=== PATIENT | female | born 2000 | race Caucasian/White ===

== ENCOUNTER → 2020-09-05 09:29 | Outpatient (CLI) | payer OTHER, SELFPAY ==
[2020-09-05 09:46] LABS: Bacteria Urine None Seen; RBC Urine None Seen (0-5/HPF); WBC Urine None Seen (0-5/HPF)
[2020-09-05 10:29] LABS: Hematocrit 34.3 % (36-46); Hemoglobin 11.1 g/dL (12.0-16.0); Mean Corpuscular HGB Conc 32.4 % (30-36); Mean Corpuscular Hemoglobin 26.3 PG (26-34); Mean Corpuscular Volume 81.2 fL (80-100); Platelet Count 356 X10^3/uL (150-400); Red Blood Cell Count 4.23 X10^6/uL (4.0-5.2); Red Cell Distribution Width 16.4 % (11.6-14.8); White Blood Cell Count 5.7 X10^3/uL (4.5-11.0)
[2020-09-05 10:36] LABS: Appearance Urine UA CLEAR; Bilirubin Urine UA NEGATIVE (NEGATIVE); Color Urine UA YELLOW; Glucose Urine UA NEGATIVE (Negative); Ketones Urine UA NEGATIVE (NEGATIVE); Leukocyte Esterase Urine UA NEGATIVE (NEGATIVE); Nitrite Urine UA NEGATIVE (Negative); Occult Blood Urine UA TRACE-LYSED (Negative); Protein Urine UA NEGATIVE (Negative); Specific Gravity Urine UA 1.025 (1.000-1.035); Urobilinogen Urine UA 0.2 E.U./dL (0.2)
[2020-09-05 10:37] LABS: pH Urine UA 6.5 (4.5-8.0)
[2020-09-05 10:42] LABS: Alanine Aminotransferase 16 IU/L (<35); Albumin 4.6 g/dL (3.5-5.0); Albumin Globulin Ratio 1.4 (1.0-2.8); Alkaline Phosphatase 62 U/L (38-126); Aspartate Aminotransferase 26 IU/L (14-36); BUN Creatinine Ratio 25.7 (6-22); Bilirubin Total 0.5 mg/dL (0.2-1.3); Blood Urea Nitrogen 18 mg/dL (7-17); Calcium 9.6 mg/dL (8.4-10.2); Carbon Dioxide 23 mmol/L (22-32); Chloride 106 mmol/L (98-107); Estimated Glomerular Filt Rate > 60.0 mL/min (>60); Globulin 3.2 g/dL (1.7-4.1); Glucose 94 mg/dL (70-100); HEMOLYSIS < 15 (0-50); Lipase 252 U/L (23-300); Potassium 4.3 mmol/L (3.4-5.1); Sodium 138 mmol/L (137-145); Total Protein 7.8 g/dL (6.3-8.2)
[2020-09-05 10:43] LABS: Culture Indicated Urine Cult Not Indicated; Urine Comments Microscopic Normal
[2020-09-05 11:28] LABS: TSH w/ Reflex to FT4 1.65 uIU/mL (0.47-4.68)
[2020-09-06 16:07] LABS: Deamidated Gliadin Ab IgA 5 units (0-19); Deamidated Gliadin Ab IgG 5 units (0-19); Immunoglobulin A,Qn 172 mg/dL (87-352); t-Transglutaminase IgA <2 U/mL (0-3)
[2020-09-20 13:36] LABS: H. Pylori Antigen Stool Negative (Negative)
== END ==
PROVIDERS: Family Provider Pediatrics; Referring Provider Registered Nurse Diabetes Educator; Visit Provider Registered Nurse Diabetes Educator
DX: K58.9 Irritable bowel syndrome, unspecified (principal); R10.9 Unspecified abdominal pain; R19.4 Change in bowel habit
CPT/HCPCS: 36415; 80053; 81001; 82784; 83516; 83690; 84443; 85027; 87338

== ENCOUNTER → 2021-06-22 18:17 | Outpatient (CLI) | payer OTHER, SELFPAY | PROVIDERS: Family Provider Pediatrics; PCP Registered Nurse Diabetes Educator; Visit Provider Nurse Practitioner Family | DX: R30.0 Dysuria (principal) | CPT/HCPCS: 87086; 87210 ==

== ENCOUNTER → 2023-07-06 12:23 | Outpatient (CLI) | payer OTHER, SELFPAY ==
[2023-07-06 14:02] LABS: Urine N gonorrhoeae NOT DETECTED
[2023-07-06 14:23] LABS: Urine Chlamydia NOT DETECTED
== END ==
PROVIDERS: Family Provider Pediatrics; PCP Registered Nurse Diabetes Educator; Visit Provider Physician Assistant
DX: Z11.3 Encounter for screening for infections with a predominantly sexual mode of transmission (principal)
CPT/HCPCS: 87491; 87591

== ENCOUNTER → 2023-07-06 12:57 | Outpatient (CLI) | payer OTHER, SELFPAY ==
[2023-07-06 16:31] LABS: Hepatitis B Surface Antigen NEGATIVE s/c (NEGATIVE)
[2023-07-06 16:51] LABS: HIV 1 & 2 Ab/Ag 4th Gen Combo NEGATIVE (NEGATIVE); Hep C Virus Ab w/Reflex Quant NEGATIVE s/c (NEGATIVE)
[2023-07-07 05:13] LABS: RPR Screen Non Reactive (Non Reactive)
== END ==
LOC: LAB 12:58
PROVIDERS: Family Provider Pediatrics; PCP Registered Nurse Diabetes Educator; Referring Provider Physician Assistant; Visit Provider Physician Assistant
DX: Z11.3 Encounter for screening for infections with a predominantly sexual mode of transmission (principal)
CPT/HCPCS: 36415; 86592; 86803; 87340; 87389; 87491; 87591

== ENCOUNTER → 2023-08-26 15:27 | Outpatient (CLI) | payer OTHER, SELFPAY ==
[2023-08-26 17:23] LABS: Add Manual Diff / Slide Review NO; Basophils Absolute Auto 0 /uL (0-100); Basophils Percent Auto 0.6 % (0-2); Eosinophils Absolute Auto 100 /uL (0-450); Eosinophils Percent Auto 1.1 % (2-4); Hemoglobin 12.6 g/dL (12.0-16.0); Lymphocytes Absolute Auto 1800 /uL (1100-4500); Lymphocytes Percent Auto 23.2 % (25-40); Mean Corpuscular Hemoglobin 29.1 PG (26-34); Mean Corpuscular Volume 85.7 fL (80-100); Monocytes Absolute Auto 700 /uL (0-900); Monocytes Percent Auto 8.3 % (3-14); Neutrophils Absolute Auto 5300 /uL (1500-7000); Neutrophils Percent Auto 66.8 % (50-75); Platelet Count 382 X10^3/uL (150-400); Red Blood Cell Count 4.32 X10^6/uL (4.0-5.2); Red Cell Distribution Width 15.1 % (11.6-14.8); White Blood Cell Count 7.9 X10^3/uL (4.5-11.0)
[2023-08-26 17:47] LABS: Alanine Aminotransferase 20 IU/L (<35); Albumin 4.5 g/dL (3.5-5.0); Albumin Globulin Ratio 1.2 (1.0-2.8); Alkaline Phosphatase 75 U/L (38-126); Aspartate Aminotransferase 30 IU/L (14-36); BUN Creatinine Ratio 24.4 (6-22); Bilirubin Total 0.8 mg/dL (0.2-1.3); Blood Urea Nitrogen 22 mg/dL (7-17); Calcium 9.9 mg/dL (8.4-10.2); Carbon Dioxide 29 mmol/L (22-32); Chloride 103 mmol/L (98-107); Estimated Glomerular Filt Rate > 60 mL/min (>60); Globulin 3.7 g/dL (1.7-4.1); Glucose 92 mg/dL (70-100); HEMOLYSIS < 15 (0-50); Lipase 123 U/L (23-300); Potassium 3.6 mmol/L (3.4-5.1); Sodium 138 mmol/L (137-145); Total Protein 8.2 g/dL (6.3-8.2)
[2023-08-26 18:13] LABS: TSH w/ Reflex to FT4 0.72 uIU/mL (0.47-4.68)
== END ==
PROVIDERS: Family Provider Pediatrics; PCP Registered Nurse Diabetes Educator; Referring Provider Physician Assistant; Visit Provider Physician Assistant
DX: K21.9 Gastro-esophageal reflux disease without esophagitis (principal)
CPT/HCPCS: 36415; 80053; 83690; 84443; 85025

== ENCOUNTER → 2023-12-31 08:41 | Outpatient (CLI) | payer OTHER, SELFPAY ==
--- NOTE | 2023-12-31 08:42 | DI.RAD.S_ITS ---
PROCEDURE: XR LUMBAR SPINE MIN 4V INDICATIONS: LBP TECHNIQUE: Five views of the lumbar spine, including flexion and extension lateral images. COMPARISON: None. FINDINGS: Bones: 5 nonrib-bearing vertebrae are present. Minimal dextroscoliosis in the thoracolumbar spine.. No vertebral body compression fractures. No suspicious bony lesions. Soft tissues: Overlying bowel gas pattern is normal. No suspicious soft tissue calcifications. Flexion/extension: There is normal range of motion, with preserved normal alignment. IMPRESSION: No acute bony abnormality. Dictated by: Joaquin Quiroz M.D. on 12/31/2023 at 9:08 Approved by: Joaquin Quiroz M.D. on 12/31/2023 at 9:11
--- NOTE | 2023-12-31 08:42 | DI.RAD.S_ITS ---
PROCEDURE: XR THORACIC SPINE 3V INDICATIONS: LBP, thoracic pain TECHNIQUE: For views of the thoracic spine were acquired. COMPARISON: None. FINDINGS: Bones: No fractures or dislocations. No suspicious bony lesions. Twelve pairs of ribs are noted, and appear intact where visualized. Soft tissues: No paravertebral stripe thickening. IMPRESSION: No acute bone abnormality. Dictated by: Joaquin Quiroz M.D. on 12/31/2023 at 9:05 Approved by: Joaquin Quiroz M.D. on 12/31/2023 at 9:07
== END ==
PROVIDERS: Family Provider Pediatrics; PCP Registered Nurse Diabetes Educator; Referring Provider Physician Assistant Surgical; Visit Provider Physician Assistant Surgical
DX: M54.50 Low back pain, unspecified (principal); M54.6 Pain in thoracic spine
CPT/HCPCS: 72074; 72110

== ENCOUNTER → 2024-01-18 15:31 | Outpatient (CLI) | payer OTHER, SELFPAY ==
--- NOTE | 2024-01-18 15:31 | DI.MRI.S_ITS ---
PROCEDURE: MR LUMBAR SPINE WO CON INDICATIONS: Strain of muscle, fascia and tendon of lower back TECHNIQUE: Noncontrast sagittal T1 spin echo and T2 fast echo, sagittal STIR, and T2 fast spin echo through the lumbar spine. In cases with scoliosis, additional coronal T2 fast spin echo may be performed. COMPARISON: None. FINDINGS: Image quality: Excellent. Alignment and Curvature: There is straightening of lumbar lordosis. Bone Marrow: Marrow is of normal overall signal. No acute vertebral body compression fractures. Spinal Cord: Conus medullaris terminates at the L1 level. Visualized cord demonstrates normal signal and size. Paraspinous Soft Tissues: There is a 8.8 x 5.1 cm bilobed T1 hyperintense and T2 hypointense mass within the pelvis. T12-L1: Normal appearance. L1-L2: Normal appearance. L2-L3: Normal appearance. L3-L4: Normal appearance. L4-L5: Normal appearance. L5-S1: Normal appearance. IMPRESSION: 1. No spinal canal stenosis or foraminal stenosis. 2. There is straightening of lumbar lordosis. This finding can be seen in patients with muscle spasms. 3. There is an 8.8 x 5.1 cm bilobed mass within the pelvis felt to correspond to an endometrioma. Differential diagnosis includes a large ovarian hemorrhagic cyst. A dedicated pelvic MRI or ultrasound can be performed for further characterization if clinically indicated. Dictated by: Kojo Vides M.D. on 01/19/2024 at 7:43 Approved by: Kojo Vides M.D. on 01/19/2024 at 8:01
== END ==
PROVIDERS: Family Provider Pediatrics; PCP Registered Nurse Diabetes Educator; Referring Provider Specialist; Visit Provider Specialist
DX: S39.012A Strain of muscle, fascia and tendon of lower back, initial encounter (principal); R19.00 Intra-abdominal and pelvic swelling, mass and lump, unspecified site; X58.XXXA Exposure to other specified factors, initial encounter
CPT/HCPCS: 72148

== ENCOUNTER → 2024-02-02 14:14 | Outpatient (CLI) | payer OTHER, SELFPAY ==
--- NOTE | 2024-02-02 14:15 | DI.US.S_ITS ---
PROCEDURE: US PELVIC COMPLETE INDICATIONS: evaluate pelvic mass seen on MRI TECHNIQUE: Real-time scanning was performed of the pelvic organs, with image documentation. Additional endovaginal scanning was necessary due to incomplete visualization of the adnexal and endometrial structures by transabdominal scanning. COMPARISON: [facility], MR, MR LUMBAR SPINE WO CON, 01/18/2024, 15:37. FINDINGS: Uterus: Uterus is anteverted and normal in size at 8.6 x 3.3 x 4.8 cm. The myometrium is homogeneous. The endometrium measures 14.5 mm combined thickness. Ovaries: Left ovary measures 3.3 x 2.6 x 4.3 cm , 19.6 cc. 2.2 cm simple cyst. Right adnexa shows a multiple complex cystic structures appearing sizes, largest measures 5.8 cm, and the collection overall measures 9.6 x 5.3 x 7.2 cm. Other: No pathologic free abdominal or pelvic fluid. IMPRESSION: Multiple right adnexal hemorrhagic cystic structures can be further evaluated with a dedicated MRI pelvis with contrast Approved by: Sky Wray M.D. on 02/04/2024 at 17:32
== END ==
PROVIDERS: Family Provider Pediatrics; PCP Registered Nurse Diabetes Educator; Referring Provider Student in an Organized Health Care Education/Training Program; Visit Provider Student in an Organized Health Care Education/Training Program
DX: R19.00 Intra-abdominal and pelvic swelling, mass and lump, unspecified site (principal); N83.201 Unspecified ovarian cyst, right side
CPT/HCPCS: 76856

== ENCOUNTER 2024-03-03 09:45 | Day surgery (SDC) | payer OTHER, SELFPAY ==
[2024-03-02 09:20] VITALS: BMI 19.8
--- NOTE | 2024-03-03 | PATH_ITS ---
[facility] Accession Number: [id number] No. of containers..01 Tissue . 01 Material submitted: . ovary - RIGHT OVARIAN CYST . 01 Diagnosis: RIGHT OVARIAN CYST, EXCISION: Endometriotic cyst (endometrioma). Benign cystic follicle. No evidence of malignancy identified. MRV 03/09/2024 1241 Local . 01 Comment: As part of ongoing quality control operator, selected slides from this case have also been reviewed by Dr. Charlie Colon, who agrees with the interpretation. . 01 Electronically signed: . Rose Marie Perez MD, Pathologist NPI- [id number] . 01 Gross description: . Received in formalin with two patient identifiers and right ovarian cyst, are multiple fragments of ogden, membranous soft tissue aggregating to 6.1 x 4.4 x 2.1 cm. The membranous tissue averages 0.2 cm thick with no distinct thickening or excrescences identified. Some possible, yellow-orange ovarian parenchyma is identified and distorted. [employer] sections are submitted in A1-A3. ([id number]) . The remainig specimen is submitted in A4-A15. ([id number]) /MRV 03/09/2024 0505 Local . 01 Pathologist provided ICD-10: N80.101 . 01 CPT . 758322 Specimen Comment: A courtesy copy of this report has been sent to [facility] Performed at: [address] [address], [place], [place] [id number] MD Erick Knox MD Phone: [phone]
[2024-03-03] MEDS: ACETAMINOPHEN 325 MG TABLET 975 MG PO (10:19)
[2024-03-03] MEDS: LACTATED RINGERS 1,000 ML 42 ML IV ×2 (10:19→11:44)
[2024-03-03] MEDS: SCOPOLAMINE 1 PATCH TOP (10:24)
[2024-03-03 10:33] VITALS: BP 126/85; PULSE 101; RESP 17; TEMP 37.3; O2SAT 99; BMI 20.5
--- NOTE | 2024-03-03 10:54 | PM.PREOP ---
Pre-operative Note Interval Note History & Physical reviewed/Exam performed by Physician: Yes Changes to H&P: No H&P completed within 30 days and has changed as indicated here:: see H&P from 02/26/24
--- NOTE | 2024-03-03 11:35 | SUR.OPER ---
Lithotomy on padded OR bed, head on pillow, arms secured on padded arm boards at <90 degrees abduction. Legs secured in padded yellow fins stirrups.
[2024-03-03] MEDS: BUPIVACAINE 0.25% (PF) VIAL 30 ML INJ (11:43)
[2024-03-03] MEDS: ROPIVACAINE 0.5% PF 5 MG/ML 20ML VIAL 5 ML INTRA-ARTI (12:53)
[2024-03-03 13:18] VITALS: BP 111/65; PULSE 101; RESP 16; TEMP 36.3; O2SAT 99
--- NOTE | 2024-03-03 13:22 | P.OP_ITS ---
Operative Date/Time/Diagnoses Date of procedure: 03/03/24 Time of procedure: 11:15 Pre-op diagnosis: 1. Adnexal cyst 2. Dysmenorrhea Post-op diagnosis: other (1. Pelvic endometriosis, stage IV 2. Right ovarian endometriomas) Procedure & Clinicians Procedure: Diagnostic laparoscopy Right ovarian cystectomy Lysis of adhesions Same procedure as scheduled: Yes Indications: 23yo F with history of dysmenorrhea, with incidentally found pelvic mass on imaging. Given the size, characteristics, and her symptoms, recommended laparoscopic removal. Surgeon: Stacy Longoria Stripping Shovel Operator: Thomas Lucero Anesthesia Type: General Operative Notes Findings: Extensive pelvic endometriosis involving the pelvic peritoneum, anterior and posterior cul-de-sacs, bilateral ovarian fossae, right ovarian endometriomas, and endometrial implants noted on the bowel. Normal appearing uterus, bilateral fallopian tubes, and left ovary. Normal appearing liver edge and gallbladder. Specimen(s): other (right ovarian cyst) Estimated Blood Loss (mL): 50 Blood products transfused: none Procedure in detail: The risks, benefits, indications and alternatives of the procedure were reviewed with the patient and informed consent was obtained. The pt was taken to the operating room where general anesthesia was obtained without difficulty. The pt was then placed in the low lithotomy position using gel-padded Sina Stirrups. Sequential compression devices were placed bilaterally for VTE prophylaxis. Pt was then prepped and draped in the usual sterile fashion. A Hodgson catheter was placed without difficulty. A sponge stick was placed in the vagina as a means to manipulate the uterus. Attention was then turned to the patient?s abdomen where a 5mm skin incision was made in the inferior aspect of the umbilicus after injection of 0.25% marcaine. A 5mm trocar and sleeve were then carefully introduced into the peritoneal cavity under direct visualization at a 90-degree angle while tenting up the abdominal wall. Intra-peritoneal placement was confirmed under direct visualization with the laparoscope with entry pressure <5mmHg. A pneumoperitoneum was obtained with several liters of CO2 gas, maximum pressure of 15mmHg. Upon entry into the peritoneal cavity, structures immediately below the incision were inspected and found to be free of injury. Two additional 5mm trocars were placed in the left and right lateral aspect of the abdominal wall under direct laparoscopic visualization after injection of 0.25% marcaine at each site. A survey of the pt?s abdomen and pelvis was notable for the above findings. The Powerseal device was then used to lyse adhesions between the right ovary and the pelvic peritoneum. Using an atraumatic grasper, the right ovary was then able to be lifted out of the pelvis. The monopolar scissors were then used to open the endometriomas and the suction demolition expert was used to remove the cyst fluid. Using traction and counter-traction, the cyst capsule was able to be from the ovarian stroma. Two more endometriomas were noted in the right ovary, and were removed in the same fashion. Care was taken to ensure the blood supply of the right ovary was not compromised during this process. Floseal was applied to the cyst bed to aid in hemostasis. The pelvis was then irrigated and suctioned. Given the extensive pelvic disease, no other endometrial implants were removed at this time. The left abdominal incision was extended to a 10mm incision to accomodate an Endocatch bag. The 3 cyst capsules were then placed in the Endocatch bag, and removed from the abdomen. The fascial incision was closed with a Chavo Arminda device with an 0-vicryl suture. The gas was then turned off and all CO2 was removed from the pt?s abdomen. The remaining trocars were removed. The skin incision sites were reapproximated using 4-0 monocryl and dermabond. The sponge stick was removed from the vagina, and the hodgson catheter was removed from the bladder. All instruments were confirmed to be removed from the vagina. At the completion of the case the sponge and needle counts were correct x 2. The patient tolerated the procedure well and was taken to the PACU in stable condition. Complications: none Post-operative Condition: stable Disposition: PACU Plan for aftercare: Discharge to home once meeting PACU criteria. Will discuss medical management of endometriosis, as well as referral to endometriosis specialist, at her follow-up visit.
[2024-03-03 13:23] VITALS: BP 106/65; PULSE 95; RESP 11; O2SAT 98
[2024-03-03 13:29] VITALS: BP 120/77; PULSE 115; RESP 16; O2SAT 99
[2024-03-03 13:33] VITALS: BP 124/80; PULSE 107; RESP 12; O2SAT 99
[2024-03-03] MEDS: OXYCODONE IR 5 MG TABLET PO ×2 (13:39→14:08)
[2024-03-03 14:10] VITALS: BP 116/64; PULSE 98; RESP 18; O2SAT 97
== END 2024-03-03 14:10 | disposition home or self-care (01) ==
PROVIDERS: Family Provider Pediatrics; PCP Registered Nurse Diabetes Educator; Referring Provider Student in an Organized Health Care Education/Training Program; Visit Provider Student in an Organized Health Care Education/Training Program
PROC: (CPT 58662; principal; 2024-03-03 11:00)
DX: N80.329 Endometriosis of the posterior cul-de-sac, unspecified depth (principal); N80.319 Endometriosis of the anterior cul-de-sac, unspecified depth; N80.103 Endometriosis of bilateral ovaries, unspecified depth; N80.50 Endometriosis of intestine, unspecified; N80.121 Deep endometriosis of right ovary; N73.6 Female pelvic peritoneal adhesions (postinfective)
CPT/HCPCS: 58662; 81025; J1100; J1170; J1885; J2250; J2405; J2704; J3010; J3490

== ENCOUNTER → 2024-10-05 15:40 | Outpatient (CLI) | payer OTHER, SELFPAY ==
--- NOTE | 2024-10-05 15:42 | DI.MRI.S_ITS ---
PROCEDURE: MR PELVIS WO/W CON INDICATIONS: ENDOMETRIOSIS,CHRONIC PELVIC PAIN,DYSMENORRHEA TECHNIQUE: Coronal HASTE, sagittal breath-hold T2 FSE; axial T1 FSE with and without fat saturation through the pelvis. Optional long- and short-axis uterine nonbreath-hold T2 FSE through the uterus. Sagittal or axial dynamic VIBE during administration of contrast. Post-contrast axial or coronal VIBE/2-D FLASH with fat saturation from the iliac crests to the symphysis. Optional diffusion weighted imaging and ADC may be performed. COMPARISON: None. FINDINGS: Image quality: Excellent. Uterus: Uterus is normal in size. Endometrium is normal in thickness. Junctional zone is normal in thickness at 12 mm or less. Adnexa: Extensive endometriosis. There are approximately 5 endometriomas in the right ovary, largest measuring 2.8 cm (series 6, image 23), with T1 hyperintense, T2 intermediate signal. There is a multiloculated endometrial deposit in the retrouterine space measuring 5.0 x 4.1 x 5.9 cm (series 5, image 12 and series 2, image 20). Urinary system: Bladder wall is normal in thickness. Distal ureters are non distended. Urethra appears normal in morphology. Nodes and vessels: No pelvic or inguinal adenopathy by size criteria. Iliac vessels are normal in size. Bowel and peritoneum: No pathologic free pelvic fluid. Inferior colon and small bowel loops are normal in caliber. Soft tissues: No inguinal hernias. No findings of pelvic floor incompetence in the absence of provocation. Bones: Marrow demonstrates normal overall signal. Prominent right sacral Tarlov cyst following the right S1 nerve root (series 2, image 19). IMPRESSION: Approximately 5 endometriomas of the right ovary, largest measuring 2.8 cm. No nodularity. Multiloculated endometrial deposit in the retrouterine space measuring 5.0 x 4.1 x 5.9 cm. Differential does include an exophytic right ovarian endometrioma. Dictated by: William Auguste M.D. on 10/06/2024 at 16:52 Approved by: William Auguste M.D. on 10/06/2024 at 16:58
== END ==
LOC: MRI 15:41
PROVIDERS: Family Provider Pediatrics; PCP Registered Nurse Diabetes Educator; Referring Provider Obstetrics & Gynecology; Visit Provider Obstetrics & Gynecology
DX: N80.121 Deep endometriosis of right ovary (principal); N80.8 Other endometriosis; R10.2 Pelvic and perineal pain; N94.6 Dysmenorrhea, unspecified; N94.10 Unspecified dyspareunia; G89.29 Other chronic pain
CPT/HCPCS: 72197; A9579

== ENCOUNTER → 2025-03-28 13:03 | Outpatient (CLI) | payer OTHER, SELFPAY ==
[2025-03-28 13:37] LABS: Add Manual Diff / Slide Review NO; Hematocrit 35.8 % (36-46); Hemoglobin 12.3 g/dL (12.0-16.0); Lymphocytes Absolute Auto 2400 /uL (1100-4500); Mean Corpuscular HGB Conc 34.4 % (30-36); Mean Corpuscular Hemoglobin 31.1 PG (26-34); Mean Corpuscular Volume 90.6 fL (80-100); Platelet Count 326 X10^3/uL (150-400)
[2025-03-28 13:57] LABS: HEMOLYSIS < 15 (0-50); Iron 53 ug/dL (37-170)
[2025-03-28 14:00] LABS: Alanine Aminotransferase 20 IU/L (<35); Albumin 4.7 g/dL (3.5-5.0); Albumin Globulin Ratio 1.6 (1.0-2.8); Alkaline Phosphatase 73 U/L (38-126); Blood Urea Nitrogen 12 mg/dL (7-17); Calcium 9.1 mg/dL (8.4-10.2); Carbon Dioxide 23 mmol/L (22-32); Chloride 103 mmol/L (98-107); Estimated Glomerular Filt Rate > 60 mL/min (>60); Globulin 2.9 g/dL (1.7-4.1); Glucose 98 mg/dL (70-99); HEMOLYSIS < 15 (0-50); Potassium 4.0 mmol/L (3.4-5.1); Sodium 137 mmol/L (137-145); Total Protein 7.6 g/dL (6.3-8.2)
[2025-03-28 14:09] LABS: Percent Iron Saturation 18 % (15-50); Total Iron Binding Capacity 297 ug/dL (265-497); Transferrin 257 mg/dL (206-381)
[2025-03-28 14:30] LABS: Thyroid Stimulating Hormone 1.41 uIU/mL (0.47-4.68)
[2025-03-28 14:32] LABS: Vitamin D 25 Hydroxy (D3) 22.8 ng/mL (30.0-100.0)
[2025-03-28 14:36] LABS: Ferritin 17 ng/mL (6-137)
[2025-03-28 15:05] LABS: Folate > 20.0 ng/mL (2.76-20.0); Vitamin B12 588 pg/mL (239-931)
== END ==
PROVIDERS: PCP Student in an Organized Health Care Education/Training Program; Referring Provider Student in an Organized Health Care Education/Training Program; Visit Provider Student in an Organized Health Care Education/Training Program
DX: R53.83 Other fatigue (principal)
CPT/HCPCS: 36415; 80053; 82306; 82607; 82728; 82746; 83540; 83550; 84443; 85025

== ENCOUNTER 2025-05-26 06:56 | Day surgery (SDC) | payer OTHER, SELFPAY ==
[2025-05-19 15:17] VITALS: BMI 20.5
--- NOTE | 2025-05-26 | PATH_ITS ---
[facility] Accession Number: [id number] No. of containers..02 Tissue . 01 Material submitted: . PART A: stomach - ANTRUM PART B: small bowel - TERMINAL ILEUM . 01 Diagnosis: Part A: ANTRUM: Gastric antral mucosa with no diagnostic alterations. No Helicobacter organisms identified on H/E stain. No intestinal metaplasia, dysplasia, or malignancy identified. . Part B: TERMINAL ILEUM: Ileal mucosa with no diagnostic alterations. No active inflammation, granulomas, or dysplasia identified. [facility] 05/31/20251129 Local . 01 Electronically signed: . Erick Knox MD, Pathologist NPI- [id number] . 01 Gross description: . . . . Received two formalin-filled containers, both labeled with the patient's name: . A. In a container labeled antrum. Specimen consists of three fragments of ogden, soft tissue which range in size from 0.2 x 0.2 x 0.2 cm to 0.4 x 0.3 x 0.2 cm. All fragments are totally submitted in cassette A. . B. In a container labeled terminal ileum. Specimen consists of one fragment of ogden, soft tissue which measures 0.2 x 0.2 x 0.2 cm. Specimen is totally submitted in cassette B. ([id number]) /HEATHER 05/31/2025 1130 Local . 01 Pathologist provided ICD-10: K92.1 . 01 CPT . 335633, [id number] Specimen Comment: A courtesy copy of this report has been sent to [phone] Performed at: [address] [address], [place], [place] [id number] MD Erick Knox MD Phone: [phone]
[2025-05-26] MEDS: LACTATED RINGERS 1,000 ML 42 ML IV (07:19)
[2025-05-26 07:24] VITALS: BP 101/72; PULSE 77; RESP 16; TEMP 36.1; O2SAT 99
--- NOTE | 2025-05-26 07:36 | PM.PREOP ---
Pre-operative Note COVID-19 COVID-19 status: Not tested Interval Note History & Physical reviewed/Exam performed by Physician: Yes Changes to H&P: No ASA Class (for procedural sedation): II
--- NOTE | 2025-05-26 08:40 | PM.OP.EC ---
Operative Date/Time/Diagnoses Date of procedure: 05/26/25 Time of procedure: 08:40 Pre-op diagnosis: Melena Post-op diagnosis: same Procedure & Clinicians Study performed: EGD and colonoscopy Same procedure(s) as scheduled: Yes Surgeon: Nigel Mendoza Anesthesia Type: MAC +/- Procedure Notes Procedure in detail: Surgeon: Nigel Mendoza MD Anesthesia: Karina Frausto LUMBER STACKER OPERATOR Procedure in detail: A timeout was performed. A bite blocked was placed and monitors were attached to the patient. The patient was positioned in the left lateral decubitus position. Sedation was administered. Once the patient was sedated the endoscope was inserted through the bite block and passed through the esophagus and stomach and into the duodenum. The duodenum appeared normal. We then withdrew the scope into the stomach. Random biopsies were taken from the antrum with cold forceps. The endoscope was retroflexed and no hiatal hernia was seen. The endoscope was straightned and withdrawn into the esophagus. No abnormalities were found in the esophagus. EGD findings: Grossly normal EGD Next we repositioned the patient for a colonoscopy. A digital rectal exam was performed and was normal. The colonoscope was inserted and advanced to the cecum. The appendiceal orifice was identified and photographed. The scope was slowly withdrawn over greater than 6 minutes. The terminal ileum was intubated and no abnormalities were seen. Random biopsies were taken from the terminal ileum mucosa with cold forceps. The rest of the colon appeared normal. The scope was retroflexed in the rectum and no abnormalities were seen. Colonoscopy findings: Grossly normal colon and terminal ileum Scope withdrawal time: 10 minutes Sedation minutes: 23 minutes Estimated Blood Loss: 5 Complications: none Post-procedure Disposition: PACU
[2025-05-26 08:42] VITALS: BP 103/75; PULSE 76; RESP 16; TEMP 36.1; O2SAT 99
[2025-05-26 08:45] VITALS: BP 105/74; PULSE 72; RESP 16; TEMP 36.1; O2SAT 100
[2025-05-26 08:50] VITALS: BP 113/75; PULSE 72; RESP 16; TEMP 36.1; O2SAT 100
[2025-05-26 08:53] VITALS: BP 112/75; PULSE 71; RESP 16; TEMP 36.1; O2SAT 100
== END 2025-05-26 09:01 | disposition home or self-care (01) ==
PROVIDERS: PCP Student in an Organized Health Care Education/Training Program; Referring Provider Surgery; Visit Provider Surgery
PROC: 0DJ08ZZ Inspection of Upper Intestinal Tract, Via Natural or Artificial Opening Endoscopic (ICD-10-PCS; CPT 45380; principal; 2025-05-26 08:15)
PROC: 0DJD8ZZ Inspection of Lower Intestinal Tract, Via Natural or Artificial Opening Endoscopic (ICD-10-PCS; CPT 45378; 2025-05-26 08:15)
DX: K92.1 Melena (principal); F17.210 Nicotine dependence, cigarettes, uncomplicated
CPT/HCPCS: 45380; 43239; 36415; J2704; J7120